=== PATIENT | female | born 1955 | race Caucasian/White ===

== ENCOUNTER 2016-10-11 10:34 | Outpatient (CLI) | payer MEDICARE, OTHER ==
[2014-05-11 15:41] VITALS: BP 188/110
--- NOTE | 2016-10-12 00:21 | Diagnostic Imaging Report ---
[facility] [address] [facility].[address] [address] ~ ~ ~ ~ Report Submission Date: Oct 11, 2016 1:24:44 PM ASSISTANT INVENTORY MANAGER Patient ~ Study Name: ROMEO SCOTT ~ Date: Oct 11, 2016 11:00:20 AM ASSISTANT INVENTORY MANAGER MRN: [id number] ~ Modality Type: CR Gender: F ~ Description: PELVIS : 53 ~ Institution: [facility] Physician: MARGY ORNELAS ~ ~ ~ ~ Bilateral hips - two views Clinical history: ~Bilateral hip pain for about a month. Findings: ~Examination of the right and left hips in AP and frog-leg lateral views demonstrates degenerative changes with slight narrowing of the joint space worse on the right with osteophyte formation. ~There is no evident fracture and no lytic or blastic lesion. Impression: 1. ~Degenerative changes in the hips worse on the right. ~ Electronically signed on Oct 11, 2016 1:24:44 PM ASSISTANT INVENTORY MANAGER by: Cb ARIAS
--- NOTE | 2016-10-12 00:22 | Diagnostic Imaging Report ---
[facility] [address] [facility] [address] [place], [place]. [address] ~ ~ ~ ~ Report Submission Date: Oct 11, 2016 2:20:00 PM CREDIT SPECIALIST Patient ~ Study Name: ROMEO SCOTT ~ Date: Oct 11, 2016 11:14:39 AM CREDIT SPECIALIST MRN: [id number] ~ Modality Type: CT\SR Gender: F ~ Description: CT C-SPINE W/O CONTRAS : 53 ~ Institution: [facility] Physician: MARGY ORNELAS ~ ~ ~ ~ CT of the cervical spine Clinical history: ~Decreased sensation and movement in the upper extremities. ~ Muscle wasting. Technique: ~CT of the cervical spine is performed in contiguous axial slices with sagittal and coronal reconstructions. Findings: ~There is straightening of the normal cervical lordosis. ~Disc spaces are narrowed at C3-4, C4-5 and C5-6 with prominent anterior and posterior osteophytes at C4-5. ~There is 3 mm degenerative anterolisthesis at C6-7. ~The C1-2 articulation is normal and the base of the odontoid is intact. ~There is mild scoliosis of the cervical vertebrae evident on the coronal reconstructions. ~Posterior osteophytes at C4-5 markedly narrow the right neural foramen. ~There is mild narrowing of the left foramen. ~The residual AP diameter of the canal is 6 mm. ~There is mild narrowing of the right neural foramen at C3-4 and C5-6. ~There is no evident fracture. Impression: 1. ~Spondylosis with degenerative disc disease at multiple levels. 2. ~Central canal stenosis and right foraminal stenosis at C4-5. ~There is mild foraminal stenosis at C3-4 and C5-6 on the right. ~ Electronically signed on Oct 11, 2016 2:20:00 PM CREDIT SPECIALIST by: Cb ARIAS
--- NOTE | 2016-10-12 00:23 | Diagnostic Imaging Report ---
[facility] [address] [facility] [address] [place], [place]. [address] ~ ~ ~ ~ Report Submission Date: Oct 11, 2016 2:56:58 PM TEST CLERK Patient ~ Study Name: ROMEO SCOTT ~ Date: Oct 11, 2016 11:18:11 AM TEST CLERK MRN: [id number] ~ Modality Type: CT\SR Gender: F ~ Description: CT T-SPINE W/O CONTRAS : 53 ~ Institution: [facility] Physician: MARGY ORNELAS ~ ~ ~ ~ HISTORY: 61-year-old female with decreased sensation and movement in the bilateral upper and lower extremities, muscle wasting. COMPARISON: None available. TECHNIQUE: Noncontrast axial CT images of the thoracic spine were performed. ~ Sagittal and coronal reformatted images were obtained. FINDINGS: No fracture, listhesis, or scoliosis throughout the thoracic spine. ~ There is mild degenerative disc disease and facet arthropathy. ~No significant central canal stenosis throughout the thoracic spine. ~There is more advanced degenerative disc disease and facet arthropathy in the partially visualized cervical and lumbar spine (CT scans of those areas dictated separately). ~There are extensive coronary artery calcifications. IMPRESSION: 1. ~No fracture or acute osseous abnormality in the thoracic spine. 2. ~Mild degenerative disc disease and facet arthropathy without high-grade central canal stenosis at any level in the thoracic spine. 3. ~Extensive coronary artery disease. ~Recommend outpatient cardiology consultation if not already performed. ~ Electronically signed on Oct 11, 2016 2:56:58 PM TEST CLERK by: Jose ARIAS
--- NOTE | 2016-10-12 00:24 | Diagnostic Imaging Report ---
[facility] [address] [facility] [place], [place]. [address] ~ ~ ~ ~ Report Submission Date: Oct 11, 2016 2:41:08 PM MANAGER INTERNET Patient ~ Study Name: ROMEO SCOTT ~ Date: Oct 11, 2016 11:23:24 AM MANAGER INTERNET MRN: [id number] ~ Modality Type: CT\SR Gender: F ~ Description: CT L-SPINE W/O CONTRAS : 53 ~ Institution: [facility] Physician: MARGY ORNELAS ~ ~ ~ ~ HISTORY: ~61-year-old female with decreased sensation and movement in the bilateral upper and lower extremities, muscle wasting. COMPARISON: None available. TECHNIQUE: Noncontrast axial CT images of the lumbar spine were performed. ~ Sagittal and coronal reformatted images were obtained. FINDINGS: There are postoperative changes of laminectomy and posterior spinal fusion L2-L5 with pedicle screws and rods. ~No fracture or listhesis in the lumbar spine. ~There is levoscoliosis measuring 23 degrees T12-L5. ~There is advanced degenerative disc disease T12-S1 with near complete loss of disc height at every level, a circumferential broad disc bulges and endplate hypertrophy, and vacuum phenomenon at multiple levels. ~There is facet arthropathy throughout the lumbar spine bilaterally, although that there are postoperative changes of partial facetectomy at multiple levels. ~There is mild central canal stenosis at L1-L2, L4-L5, and L5-S1. ~No high-grade central canal stenosis throughout the lumbar spine. ~There is significant neural foraminal stenosis bilaterally at every disc level T12-S1. IMPRESSION: 1. ~No fracture or acute osseous abnormality of the lumbar spine. ~ 2. ~Postoperative changes L2-L5 as detailed above. 3. ~Degenerative disc disease and facet arthropathy cause significant neural foraminal stenosis bilaterally at every disc level T12-S1. ~These findings may correlate with radicular symptoms in the bilateral lower extremities in essentially every nerve root distribution. 4. ~Mild central canal stenosis at multiple levels in the lumbar spine, without high-grade central canal stenosis. 5. ~23 degrees levoscoliosis T12-L5. ~ Electronically signed on Oct 11, 2016 2:41:08 PM MANAGER INTERNET by: Jose ARIAS
== END 2016-10-11 10:35 ==
LOC: RAD 10:34
PROVIDERS: ATTEND Family Medicine
DX: M51.16 Intervertebral disc disorders with radiculopathy, lumbar region (principal); M62.50 Muscle wasting and atrophy, not elsewhere classified, unspecified site
CPT/HCPCS: 72125; 72128; 72131; 73521